=== PATIENT | male | born 2000 | race African-American/Black ===

== ENCOUNTER 2018-08-06 19:46 | Emergency (ER) | payer SELFPAY ==
[2018-08-06] MEDS ORDERED: LIDOCAINE 1% INJ-PF (10 MG/ML) 30 ML SDV INJ ONE (20:40)
[2018-08-06] MEDS ORDERED: DIPH/PERTUSS(ACELL)/TETANUS VAC/PF 0.5 ML SYR (>=10YO) IM ONE (20:40)
--- NOTE | 2018-08-06 20:44 | ER Document Report ---
ED General - General Chief Complaint: Laceration Stated Complaint: LEFT HAND INJURY Time Seen by Provider: 08/06/18 20:37 Primary Care Provider: JOSELINE GARCIA MD [ACTIVE STAFF] - Follow up as needed Mode of Arrival: Ambulatory Information source: Patient TRAVEL OUTSIDE OF THE [place] IN LAST 30 DAYS: No - HPI Patient complains to provider of: Left middle finger laceration Onset: Just prior to arrival Onset/Duration: Sudden Quality of pain: Sharp Severity: Severe Pain Level: 5 Associated symptoms: None Exacerbated by: Movement Relieved by: Denies Similar symptoms previously: No Recently seen / treated by doctor: No Notes: 18-year-old -[place] male coming in today with left middle finger laceration. He fell playing basketball and lacerated his left middle finger on a piece of glass which was nearby the basketball hoop. Bleeding is controlled. Last tetanus unknown. - Related Data Allergies/Adverse Reactions: No Known Allergies Allergy (Verified 11/11/13 19:01) Past Medical History - General Information source: Patient - Social History Smoking Status: Never Smoker Chew tobacco use (# tins/day): No Frequency of alcohol use: None Drug Abuse: Marijuana Family History: Reviewed & Not Pertinent Patient has suicidal ideation: No Patient has homicidal ideation: No Pulmonary Medical History: Reports: Hx Asthma - childhood asthma Renal/ Medical History: Denies: Hx Peritoneal Dialysis Review of Systems - Review of Systems Notes: Constitutional: No fevers. No chills. EENT: No eye redness. No eye pain. No ear pain. No sore throat. Cardiovascular: No chest pain. No palpitations. Respiratory: No cough. No shortness of breath. No respiratory distress. Gastrointestinal: No abdominal pain. No nausea, vomiting, or diarrhea. Genitourinary: Atraumatic. No lesions. No pain. No discharge. Musculoskeletal: Positive laceration left middle finger Skin: No rash or lesions. Lymphatic: No swollen lymph nodes. Neurologic: No headache. No syncope. Psychiatric: No suicidal or homicidal ideation. Physical Exam - Vital signs Vitals: Temp Pulse Resp BP Pulse Ox 98.6 F 85 20 130/82 H 100 08/06/18 20:06 08/06/18 20:06 08/06/18 20:06 08/06/18 20:06 08/06/18 20:06 - Notes Notes: General: Well-developed, well-nourished. In no acute distress. Non-toxic appearing. Cardiac: Well-perfused. Regular rate and rhythm. No murmurs, rubs, or gallops. Pulmonary: No respiratory distress. No cyanosis. Bilateral lung fiels are clear to auscultation. Abdominal: Non-distended. Non-rigid. Bowels sounds are present in all four quadrants. No guarding or rebound. HEENT: Head is atraumatic. Conjunctivae not reddened. No tearing. PERRL. EOMI. Orbits atraumatic. No periorbital swelling or erythema. Oropharynx is without erythema, swelling, or exudates. Neck: Supple. No adenopathy. No meningismus. Dermatologic: Warm with good turgor. No rash. Atraumatic. Chest: Atraumatic. No chest wall tenderness to palpation. Musculoskeletal: 2 cm laceration to the dorsum of the left middle finger. No range of motion deficits. Distal neurovascular exam is intact Genitourinary: Examination deferred Neurologic: No gross neurologic deficits. Psychiatric: Normal mood. Course - Re-evaluation Re-evalutation: 08/06/18 20:44 We will get an x-ray to rule out foreign body. Has suture set up done and we will suture the wound - Vital Signs Vital signs: Temp Pulse Resp BP Pulse Ox 98.6 F 85 20 130/82 H 100 08/06/18 20:06 08/06/18 20:06 08/06/18 20:06 08/06/18 20:06 08/06/18 20:06 Procedures - Laceration/Wound Repair left middle finger Wound length (cm): 2 Wound's Depth, Shape: Irregular Laceration pre-procedure: Sterile PPE donned, Sterile drapes applied, Shur-Clens applied Anesthetic type: 1% Lidocaine Volume Anesthetic (mLs): 4 Wound explored: Clean Wound Repaired With: Sutures Suture Size/Type: 4:0, Ethilon Number of Sutures: 5 Layer Closure?: No Post-procedure NV exam normal: Yes Complications: No Discharge - Discharge Clinical Impression: Finger laceration Qualifiers: Encounter type: initial encounter Finger: middle finger Damage to nail status: without damage Foreign body presence: without foreign body Laterality: left Qualified Code(s): S61.213A - Laceration without foreign body of left middle finger without damage to nail, initial encounter Condition: Good Disposition: HOME, SELF-CARE Instructions: Antibiotic Ointment Protection ([facility]), Laceration Care ([facility]), Soap Cleansing ([facility]) Additional Instructions: Sutures can be removed in 10 days. Return to the ED or see your doctor in any time if any signs of infection appear Referrals: JOSELINE GARCIA MD [ACTIVE STAFF] - Follow up as needed
--- NOTE | 2018-08-06 21:13 | RADIOLOGY REPORT (SQ) ---
EXAM DESCRIPTION: [facility]: XR HAND 3 OR MORE VIEWS Views: 3 CLINICAL HISTORY: 18 years Male, left mid finger lac r/o fb COMPARISON: None. FINDINGS: Negative for acute fracture, dislocation, or radiopaque foreign body. IMPRESSION: 1. No acute fracture. 2. No hyperdense foreign body.
[2018-08-06 21:41] VITALS: BP 128/76
== END 2018-08-06 21:41 | disposition home or self-care (01) ==
LOC: ER 19:46
DX: S61.213A Laceration without foreign body of left middle finger without damage to nail, initial encounter (principal); W01.110A Fall on same level from slipping, tripping and stumbling with subsequent striking against sharp glass, initial encounter; Y93.67 Activity, basketball; Z23 Encounter for immunization
CPT/HCPCS: 90471; 90715; 99283